=== PATIENT | female | born 1950 | race Caucasian/White ===

== ENCOUNTER 2020-12-07 13:41 | Emergency (ER) | payer OTHER ==
--- OUTSIDE RECORDS SUMMARY | 2020-12-07 13:50 | XMS REPORT | Continuity of Care Document ---
:1950 Author Organization [facility] [place] [facility] t Address [address] [place] [address] Care Team Providers Name Role Phone Tee Wolf MD Primary Care Physician Farhat ELLIS Attending Clinician Tanner Mata MD Attending Clinician Logan Mariscal MD Attending Clinician FORREST Attending Clinician Unavailable Payers Payer Name Policy Type Policy Effective Date Expiration Date Sour ce Number UHC MEDICAREUHC [id number] 2020 [place] TRS/[facility] 00:00:00 Method[facility] t [id number] 2020-Present Problems Condition Condition Condition Status Onset Resolution Last Treating Co mments Source Name Details Category Date Date Treatment Clinician Date Sjogrens Sjogrens Problem Active Unive rs syndrome syndrome [facility] [place] [facility] Bilateral Bilateral Problem Active Uni vers knee pain knee pain [facility] [place] [facility] Chondromal Chondromal Problem Active U nivers acia of ac[place] of ity of [place] oral oral Physici joint, joint, ans right right History of History of Problem Resolve Univers High blood High blood d it y of pressure pressure [place] [facility] History of History of Problem Resolve Univers Sjogren-[place] S[place]ren[place] d it y of rsson rsson [place] syndrome syndrome Physic i ans Allergies, Adverse Reactions, Alerts This patient has no known allergies or adverse reactions. Family History Family Member Diagnosis Comments Start Date Stop Date Source Mother Family history of [facility] of [place] malignant neoplasm Physic ians Social History Social Habit Start Date Stop Date Quantity Comments Source Sex Assigned At [facility] Tobacco use and 2018-04-05 2018-04-05 Never used [facility] kes - exposure 00:00:00 00:00:00 [facility] Alcohol intake 2018-04-05 2018-04-05 Current [facility] es - 00:00:00 00:00:00 non-drinker of Medical nter alcohol (finding) Smoking Status Start Date Stop Date Source Never smoker [facility] Medications Ordered Filled Start Stop Current Ordering Indication Dosage Frequency Signature Comments Components Source Medication Medication Date Date Medication? Clinician (SIG) Name Name Meloxicam Meloxicam Yes AFSANEH TAKE 1 U nivers 15 MG Oral 15 MG Oral 4-12 FORREST TABLET ity of Tablet Tablet 00:00: M.D. DAILY [place] 00 NEEDED. Physici ans atorvastati 2017-06 Yes 10mg QD Take [address] [facility] (LIPITOR) 06-05 by mouth [facility] - 10 MG 11:58: daily. Medical tablet 57 [place] predniSONE 2017-06 Yes 2.5mg Take 2.[address] (DELTASONE) 1-02 mg [facility] - 2.5 MG 11:58: mouth as Medical tablet 57 needed. [place] traZODone 2017-06 Yes 50mg QD Take [address] [facility] [address] [facility] (DESYREL) 02 by mouth [facility] - 50 MG 11:58: nightly. Medical tablet 57 [place] aspirin 81 2017-06 Yes 81mg QD Take [address] MG EC 06-05 by mouth [facility] - tablet 11:58: daily. Medical 57 [place] multivitami 2017-06 Yes 1{tbl} QD Take [address] [facility] per 06-05 tablet by [facility] - tablet 11:58: mouth Medical 57 daily. [place] cetirizine 2017-06 Yes 10mg QD Take [address] (ZYRTEC) 10 02 by mouth [facility] - MG tablet 11:58: daily. Medica l 57 [place] metoprolol 2017-06 Yes 25mg QD Take [address] (TOPROL-XL) 02 by mouth [facility] - 25 MG 24 hr 11:58: daily. Medi narcisa tablet 57 Center Hydroxychlo Hydroxychlo 2011-06 Yes ÓSCAR QD TAKE 1 Univers roquine roquine 0-19 R HOLLOW[place] TABLET ity of Sulfate 200 Sulfate 200 00:00: M.D. DAILY WITH [place] MG Oral MG Oral 00 FOOD. Physici Tablet Tablet ans Cevimeline Cevimeline 2011-06 Yes ÓSCAR TAKE 1 Univers HCl - 30 MG HCl - 30 MG 0-19 R [place]LLOWAY CAPSULE BY ity of Oral Oral 00:00: M.D. MOUTH [place] Capsule Capsule 00 EVERY 8 Physic i HOURS FOR ans SJOGRENS traZODone traZODone Yes 1 TAKE 1 Uni vers HCl - 50 MG HCl - 50 MG TABLET ity of Oral Tablet Oral Tablet PRN [place] [facility] Mature Mature Yes 1 QD TAKE 1 Univers Adult Adult TABLET ity of Century Century DAILY. [place] TABS TABS Physici ans Aspirin 81 Aspirin 81 Yes 1 QD TAKE 1 U nivers MG TABS MG TABS TABLET ity of DAILY. [place] [facility] Calcium + D Calcium + D Yes QD TAKE 1 Univers TABS TABS TABLET ity of ONCE [place] DAILY. Physici ans Zyrtec 10 Zyrtec 10 Yes Unive rs MG TABS MG TABS ity of [place] [facility] Aspirin 81 Aspirin 81 Yes Uni vers MG Oral MG Oral ity of Tablet Tablet [place] Chewable Chewable Physici ans Metoprolol Metoprolol Yes Uni vers Tartrate 25 Tartrate 25 i ty of MG Oral MG Oral [place] Tablet Tablet Physici ans Atorvastati Atorvastati Yes U nivers n Calcium n Calcium ity o f 10 MG Oral 10 MG Oral Venu as Tablet Tablet Physici ans Meloxicam Meloxicam Yes Unive rs 7.5 MG Oral 7.5 MG Oral i ty of Tablet Tablet [place] [facility] Sertraline Sertraline Yes Uni vers HCl TABS HCl TABS [facility] [place] [facility] Immunizations Ordered Immunization Filled Immunization Date Status Commen ts Source Name Name PFIZER COVID-19 MRNA 2020-07-14 Completed [place] [facility] 00:[place]:00 [facility] PFIZER COVID-19 MRNA 2020-06-16 Completed [place] VACC[place] 00:00:00 [facility] Vital Signs Vital Name Observation Time Observation Value Comments Source Height 2018-09-16 08:10:00 67 [in_us] [facility] [place] [facility] Weight 2018-09-16 08:10:00 157 [lb_av] [facility] Physicians Body Mass Index 2018-09-16 08:10:00 24.59 kg/m2 [facility] Calculated Physicians Procedures Procedure Date / Time Performed Performing Clinician Edwin e [U] XR KNEE 3 VWS 2018-09-13 00:00:00 [facility] BILATERAL Physicians Plan of Care Planned Activity Planned Date Details Comments Source Future Scheduled 2028-04-[address] [facility] [address] [facility] - Test 00:00:00 malignant neoplasm of Medica l Center colon (procedure) [code = 996575696] Future Scheduled 2021-01-02 INFL[place]ENZA VACCINE [place] [facility] Test 00:00:00 [code = INFLUENZA VACCINE] Future Scheduled 2020-02-[address] [facility] - Test 00:00:00 (#1) [code = Medical Center INFLUENZA VACCINE (#1)] Future Scheduled 2016-06-[address] [facility] - Test 00:00:00 WELLNESS (YEAR 2 or Medical Center FIRST YEAR if no IPPE) [code = MEDICARE ANNUAL WELLNESS (YEAR 2 or FIRST YEAR if no IPPE)] Future Scheduled 2012-04-28 SHINGLES VACCINES [place] [facility] Test 00:00:00 (#2) [code = SHINGLES VACCINES (#2)] Future Scheduled 2000 BREAST CANCER [facility] Test 00:00:00 SCREENING [code = BREAST CANCER SCREENING] Future Scheduled 2000 COLONOSCOPY SCREENING [place] [facility] Test 00:00:00 [code = COLONOSCOPY SCREENING] Future Scheduled 1968 Hepatitis C screening [place] [facility] Test 00:00:00 (procedure) [code = 187171247] Future Scheduled [address] [facility] - Test 00:00:00 malignant neoplasm of Medica l Center breast (procedure) [code = 619261801] Encounters Start End Encounter Admission Attending Care Care Encounter Source Date/Time Date/Time Type Type Clinicians Facility Department ID 2020-08-25 2020-08-25 Office CHARLEE Dougherty [id number] 09:58:39 10:13:39 Visit [facility] AMBULATOR [id number] Y [id number] 2020-08-13 2020-08-13 Office CHARLEE Dougherty [id number] 09:55:51 10:10:51 Visit [facility] AMBULATOR [id number] Y [id number] 2020-07-14 2020-07-14 Outpatient [facility] [id number] [address] [place] [address] 00:00:00 00:00:[address] 2020-07-01 2020-07-01 Office CHARLEE Mata [id number] 10:50:46 13:42:49 Visit Ashley Hart AMBULATOR [id number] Y [id number] 2020-06-16 2020-06-16 Outpatient [facility] [id number] [place] [address] 00:00:00 00:00:[address] 2020-05-13 2020-05-13 Office Shilpa Mariscal BCM [id number] 13:33:52 13:48:52 Visit [place] AMBULATOR [id number] Y [id number] 2018-09-13 2018-09-13 Appointmen [facility] [id number] Univers 11:00:00 11:00:00 tAndres SHELBY M.D. Ortho and i ty of [place] [facility] S Fernanda SHELBY M.D. Medical Physi ci [place] ans Results Test Description Test Time Test Comments Results Result Sour e Comments [U] XR KNEE 3 VWS 2018-09-13 Images Univers ity of BILATERAL 09:33:00 acquired, not [place] reported on Physicians this accession number.
--- NOTE | 2020-12-07 14:08 | RAD REPORT ---
EXAM DESCRIPTION: CT - Ct Stroke Brain Wo Cont - 12/07/2020 2:02 pm CLINICAL HISTORY: Weakness COMPARISON: None. TECHNIQUE: Axial 5 mm thick images of the head were obtained without IV contrast. All CT scans are performed using dose optimization technique as appropriate and may include automated exposure control or mA/KV adjustment according to patient size. FINDINGS: No intracranial hemorrhage, mass, edema or shift of mid-line structures. No acute infarcti on changes seen. No abnormal extra-axial fluid collections. Mastoid air cells and visualized portions of the paranasal sinuses are clear. No acute bony findings. IMPRESSION: No acute intracranial abnormality. Discussed with Dr. Crain by Dr. Maloney at 1403 on 12/07/20
[2020-12-07 15:08] LABS: Absolute Lymphocytes (CBC) 1.8 K/uL (0.7-4.9); Basophils % 1.1 % (0-1.3); Hematocrit 39.2 % (36.0-45.0); Lymphocytes % 27.7 % (15.3-44.8); MPV 8.4 fL (7.6-11.3); RBC Red Blood Cell Count 4.57 M/uL (3.86-4.86)
[2020-12-07 15:20] LABS: Potassium 4.2 mmol/L (3.5-5.1)
--- NOTE | 2020-12-07 15:29 | RAD REPORT ---
EXAM DESCRIPTION: RAD - Chest Single View - 12/07/2020 2:30 pm CLINICAL HISTORY: Weakness COMPARISON: None TECHNIQUE: AP portable chest image was obtained 12/07/2020 2:30 pm . FINDINGS: Lungs are clear. Heart and vasculature are normal. No measurable pleural effusion and no p neumothorax. No acute bony abnormality seen. No acute aortic findings suspected. IMPRESSION: No acute cardiopulmonary process.
[2020-12-07] MEDS ORDERED: FOLIC ACID 5 MG/ML VIAL ONE (15:34)
--- NOTE | 2020-12-07 16:34 | RAD REPORT ---
EXAM DESCRIPTION: MRI - MRA Head Wo Cont - 12/07/2020 4:24 pm CLINICAL HISTORY: Weakness, stroke-like symptoms COMPARISON: None. TECHNIQUE: Axial and coronal 3D [id number] image acquisition was performed. 3D rotational images were generated with source and reconstruction images reviewed. Horizontal and vertical axis rotation al views generated using MIP protocol. FINDINGS: Major venous sinuses are patent. Right transverse sinus is dominant sinus is a normal vari ant. No aneurysm or vascular malformation seen. No named branch occlusion or significant atherosclerotic c hange identifiable. Distal internal carotid arteries and basilar artery show no significant findings. IMPRESSION: MRA head examination shows no significant or suspicious finding.
--- NOTE | 2020-12-07 16:37 | RAD REPORT ---
EXAM DESCRIPTION: MRI - Brain W/Wo Cont - 12/07/2020 4:25 pm CLINICAL HISTORY: WEAKNESS, dizziness, stroke-like symptoms COMPARISON: MRA Head Wo Cont dated 12/07/2020T head same date TECHNIQUE: Sagittal and axial T1-weighted images were obtained. Axial PD/heavily T2-weighted and T2- FLAIR images were obtained along with axial DWI/ADC mapping sequences. Coronal heavily T2 weighted s equence obtained. Axial and coronal post-contrast T1-weighted images were also obtained. A ml Multi arnol contrast following utilized. FINDINGS: No intracranial hemorrhage, mass or acute infarction. There is no edema or shift of midli ne structures. No extra-axial fluid collections. Mclaughlin-matter/white matter junction is preserved. Sig nal voids are seen as a normal finding in the major intracranial vessels. No significant atrophy malhotra ges are present. Ventricles are normal. Rare punctate areas of T2 signal abnormality in the cerebral white matter. Post-contrast images show normal enhancement. No dural thickening. Mastoid air cells and paranasal sinuses are clear. IMPRESSION: No acute infarction and no acute intracranial finding. No significant intracranial findings identifiable.
--- NOTE | 2020-12-07 16:40 | RAD REPORT ---
EXAM DESCRIPTION: MRI - MRA Neck W/Wo Cont - 12/07/2020 4:25 pm CLINICAL HISTORY: Weakness, dizziness, stroke-like symptoms TECHNIQUE: MR angiography of the cervical vasculature performed. Coronal imaging plane acquisition u tilized. A MultiHance contrast volume was utilized. Coronal reformatted images were generated and re viewed. Vertical axis 3D rotational projections obtained using maximum intensity projection protocol. FINDINGS: No innominate artery abnormality seen. Right common carotid and internal carotid arteries show no sig nificant findings. Arteries are codominant with no suspicious finding. Proximal left common carotid a rtery is tortuous. Origin is somewhat obscured by a left-sided the venous contamination. Acute abnorm ality is not suspected. Elsewhere the left common carotid and internal carotid arteries show no suspi cious findings. IMPRESSION: MRA neck examination shows no significant or suspicious finding.
[2020-12-07] MEDS ORDERED: NA CHLORIDE 0.9% 1,000 ML ONE (17:12)
[2020-12-07] MEDS ORDERED: ASPIRIN 325 MG TAB ONE (17:12)
--- NOTE | 2020-12-07 17:52 | ER ---
Nurse's Notes [facility] Name: oZe Rios Age: 70 yrs Sex: Female : 1950 Arrival Date: 12/07/2020 Time: 13:43 Bed 19 Private MD: Diagnosis: Transient cerebral ischemic attack, unspecified;Dehydration Presentation: 12/07 13:46 Chief complaint: Spouse and/or significant other states: he noticed today around 1000 sv that the pt's smile was drooping on the left side, and slurred speech. Pt stated that she also has R hand weakness. 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 An acute neurological deficit is present. The charge nurse has been notified. Pre-hospital glucose is not applicable to this patient. Risk Assessment: Do you want to hurt yourself or someone else? Patient reports no desire to harm self or others. Onset of symptoms was December 07, 2020 at 10:00. 13:46 Method Of Arrival: Wheelchair sv 13:46 Acuity: ERICA 2 sv 14:00 Coronavirus screen: Client denies travel out of the [place] in the last 14 days. At this jl7 time, the client does not indicate any symptoms associated with coronavirus-19. Ebola Screen: No symptoms or risks identified at this time. Initial Sepsis Screen: Does the patient meet any 2 criteria? No. Patient's initial sepsis screen is negative. Does the patient have a suspected source of infection? No. Patient's initial sepsis screen is negative. Triage Assessment: 13:46 The onset of the patients symptoms was December 07, 2020 at 10:00. General: Appears in no sv apparent distress. comfortable, Behavior is calm, cooperative, appropriate for age. Neuro: Level of Consciousness is awake, alert, obeys commands, Oriented to person, place, time, situation, Gait is steady, Speech is slurred, Reports numbness in right hand Denies blurred vision dizziness, diplopia. Respiratory: Respiratory effort is even, unlabored. Stroke Activation: Symtpom onset >3 hours and < 6 hours Physician: Stroke Attending; Name: ; Notified At: ; Arrived At: Physician: Chief Stroke Resident; Name: ; Notified At: ; Arrived At: Physician: Stroke Resident; Name: ; Notified At: ; Arrived At: Physician: ED Attending; Name: Dr Crain; Notified At: 13:53; Arrived At: 14:03 Physician: ED Resident; Name: ; Notified At: ; Arrived At: 13:46 Pb MAJANO at bedside at 1403 sv Historical: - Allergies: 14:05 No Known Allergies; sv - PMHx: 14:05 Hypertensive disorder; sv - Immunization history:: Adult Immunizations unknown. - Social history:: Smoking status: Patient denies any tobacco usage or history of. Screenin:10 Abuse screen: Denies threats or abuse. Denies injuries from another. Nutritional jl7 screening: No deficits noted. Tuberculosis screening: No symptoms or risk factors identified. Fall Risk IV access (20 points). Total Maxwell Fall Scale indicates No Risk (0-24 pts). Assessment: 13:52 Reassessment: pt to CT via stretcher with ANUJA Dyer. jl7 14:10 General: Appears in no apparent distress. uncomfortable, Behavior is cooperative, jl7 appropriate for age, anxious. Pain: Denies pain. Neuro: Level of Consciousness is awake, alert, obeys commands, Oriented to person, place, time, situation, Moves all extremities. Full function. Cardiovascular: Patient's skin is warm and dry. Respiratory: Airway is patent Respiratory effort is even, unlabored, Respiratory pattern is regular, symmetrical. GI: No signs and/or symptoms were reported involving the gastrointestinal system. : No signs and/or symptoms were reported regarding the genitourinary system. EENT: No signs and/or symptoms were reported regarding the EENT system. Derm: Skin is pink, warm \T\ dry. 14:10 VAN Scoring: Arm Drift: Patients demonstrates NO arm weakness. Patient is VAN Negative. jl7 T-PA (Activase) Screening: Contraindications: Rapidly improving condition or minor deficit: Yes. 14:20 The patient has not been NPO before screening. The patient is currently on the jl7 following diet: Home The patient is alert, and able to follow commands. The patient does not exhibit slurred or garbled speech. The patient is not exhibiting difficulty speaking. The patient does not exhibit difficulty understanding words. The patient is able to swallow own secretions with no drooling or need for suction. Patient tolerated one teaspoon of water. No drooling, immediate coughing, gurgling, or clearing of the throat was noted. The patient tolerated 90mL of water. No drooling, immediate coughing, gurgling, or clearing of the throat was noted. The patient passed the bedside swallow screening. Oral medications may be given as ordered. Contact Physician for further diet orders. Provider notified of bedside swallow screening results: Pb Braden LEVEL DESIGNER. 15:00 Reassessment: Patient appears in no apparent distress at this time. No changes from jl7 previously documented assessment. Patient and/or family updated on plan of care and expected duration. Pain level reassessed. Patient is alert, oriented x 3, equal unlabored respirations, skin warm/dry/pink. Patient denies pain at this time. 16:00 Reassessment: Patient appears in no apparent distress at this time. No changes from jl7 previously documented assessment. Patient and/or family updated on plan of care and expected duration. Pain level reassessed. Patient is alert, oriented x 3, equal unlabored respirations, skin warm/dry/pink. 16:45 Reassessment: MELECIO Amrbiz at bedside discussing results and POC. jl7 17:30 Reassessment: Patient appears in no apparent distress at this time. No changes from jl7 previously documented assessment. Patient and/or family updated on plan of care and expected duration. Pain level reassessed. Patient is alert, oriented x 3, equal unlabored respirations, skin warm/dry/pink. Vital Signs: 14:10 BP 120 / 50; Pulse 98; Resp 16; Pulse Ox 98% on R/A; kj1 14:42 BP 124 / 76; Pulse 50; Resp 16; Temp 98.1; Pulse Ox 99% ; Pain 0/10; jl7 15:10 BP 130 / 67; Pulse 47; Resp 15; Pulse Ox 100% ; jl7 16:55 BP 149 / 80; Pulse 50; Resp 15; Pulse Ox 100% ; Pain 0/10; jl7 18:10 BP 158 / 72; Pulse 52; Resp 15; Pulse Ox 100% ; jl7 NIH Stroke Scale Scores: 14:10 NIHSS Score: 0 jl7 14:15 NIHSS Score: 0 pm1 ED Course: 13:43 Patient arrived in ED. ds1 13:49 Halle Corral RN is Primary Nurse. jl7 13:54 Pb Braden NP is PHCP. pm1 13:54 Jovan Crain MD is Attending Physician. pm1 14:02 CT Stroke Brain w/o Contrast In Process Unspecified. EDMS 14:05 Triage completed. sv 14:05 Initial lab(s) drawn, by me, sent to lab. EKG done, by ED staff, reviewed by Pb Braden NP. Inserted saline lock: 20 gauge in left antecubital area, using aseptic technique. Blood collected. 14:06 Arm band placed on. sv 14:10 Patient has correct armband on for positive identification. Placed in gown. Bed in low jl7 position. Call light in reach. Side rails up X 1. roll inspector on. Pulse ox on. NIBP on. 14:30 Stroke CXR 1 View In Process Unspecified. EDMS 16:24 MRA Head Wo Cont In Process Unspecified. EDMS 16:25 Brain W/Wo Cont In Process Unspecified. EDMS 16:25 MRA Neck W/Wo Cont In Process Unspecified. EDMS 16:58 No provider procedures requiring assistance completed. jl7 17:51 Kavin Monroy MD is Referral Physician. pm1 18:08 IV discontinued, intact, bleeding controlled, No redness/swelling at site. Pressure jl7 dressing applied. Administered Medications: 14:40 Drug: foLIC Acid 1 mg Route: IVPB; Site: left antecubital; jl7 14:41 Follow up: Response: No adverse reaction; IV Status: Completed infusion jl7 16:54 Drug: Aspirin 325 mg Route: PO; jl7 18:11 Follow up: Response: No adverse reaction jl7 16:54 Drug: NS 0.9% 1000 ml Route: IV; Rate: 1000 ml; Site: left antecubital; jl7 17:50 Follow up: Response: No adverse reaction; IV Status: Completed infusion; IV Intake: jl7 1000ml Point of Care Testing: Blood Glucose: 14:08 Blood Glucose: 90 mg/dL; jl7 Ranges: Intake: 17:50 IV: 1000ml; Total: 1000ml. jl7 Outcome: 17:51 Discharge ordered by . pm1 18:08 Discharged to home ambulatory, with family. jl7 18:08 Condition: stable 18:08 Discharge instructions given to patient, Instructed on discharge instructions, follow up and referral plans. medication usage, Demonstrated understanding of instructions, follow-up care, medications, Prescriptions given X 2. 18:11 Patient left the ED. jl7 NIH Stroke Scale - NIH Stroke Score Date: 12/07/2020 Time: 14:10 Total Score = 0 1a. Level of Consciousness (LOC) - 0(Alert) 1b. Level of Consciousness (LOC) (Month \T\ Age) - 0(Both) 1c. LOC Commands (Open \T\ Closes Eyes/Ingot Car Operator) - 0(Both) 2. Best Gaze (Lateral Gaze Paresis) - 0(Normal) 3. Visual Field Loss - 0(No visual loss) 4. Facial Palsy - 0(Normal) 5a. Left Arm: Motor (10-second hold) - 0(No drift) 5b. Right Arm: Motor (10-second hold) - 0(No drift) 6a. Left Leg: Motor (5-second hold - always test supine) - 0(No drift) 6b. Right Leg: Motor (5-second hold - always test supine) - 0(No drift) 7. Limb Ataxia (finger/nose \T\ heel/rosario - test with eyes open) - 0(Absent) 8. Sensory Loss (pinprick arms/legs/face) - 0(Normal) 9. Best Language: Aphasia (description/naming/reading) - 0(No aphasia) 10. Dysarthria (speech clarity - read or repeat words) - 0(Normal) 11. Extinction and Inattention (visual/tactile/auditory/spatial/personal) - 0(No abnormality) Initials: jl7 NIH Stroke Scale - NIH Stroke Score Date: 12/07/2020 Time: 14:15 Total Score = 0 1a. Level of Consciousness (LOC) - 0(Alert) 1b. Level of Consciousness (LOC) (Month \T\ Age) - 0(Both) 1c. LOC Commands (Open \T\ Closes Eyes/Ingot Car Operator) - 0(Both) 2. Best Gaze (Lateral Gaze Paresis) - 0(Normal) 3. Visual Field Loss - 0(No visual loss) 4. Facial Palsy - 0(Normal) 5a. Left Arm: Motor (10-second hold) - 0(No drift) 5b. Right Arm: Motor (10-second hold) - 0(No drift) 6a. Left Leg: Motor (5-second hold - always test supine) - 0(No drift) 6b. Right Leg: Motor (5-second hold - always test supine) - 0(No drift) 7. Limb Ataxia (finger/nose \T\ heel/rosario - test with eyes open) - 0(Absent) 8. Sensory Loss (pinprick arms/legs/face) - 0(Normal) 9. Best Language: Aphasia (description/naming/reading) - 0(No aphasia) 10. Dysarthria (speech clarity - read or repeat words) - 0(Normal) 11. Extinction and Inattention (visual/tactile/auditory/spatial/personal) - 0(No abnormality) Initials: pm1 Signatures: Dispatcher [employer] Manisha Bullock RN RN Marcelle Friend ds1 Pb Braden, LEVEL DESIGNER LEVEL DESIGNER pm1 Halle Corral RN RN jl7 Linda Coy kj1 Corrections: (The following items were deleted from the chart) 14:15 14:00 BP 120 / 50; Pulse 98bpm; Resp 16bpm; Pulse Ox 98% RA; kj1 kj1
--- NOTE | 2020-12-07 17:52 | EDPHYS ---
Physician Documentation [facility] Name: Zoe Rios Age: 70 yrs Sex: Female : 1950 Arrival Date: 12/07/2020 Time: 13:43 Bed 19 Private MD: ED Physician Jovan Crain HPI: 12/07 14:15 This 70 yrs old Female presents to ER via Wheelchair with complaints of S/S pm1 of Possible Stroke. 14:15 The patient's problem is reported as a facial droop, on right, paresthesias, numbness pm1 to right middle finger and coordination issues with right hand. Onset: The symptoms/episode began/occurred yesterday, at 12:00. Duration: The episode is continuous. Context: symptoms became apparent yesterday at 1200 while moving items, occurred at home. The symptoms are alleviated by nothing. The symptoms are aggravated by nothing. Associated signs and symptoms: Pertinent negatives: chest pain, headache, palpitations, shortness of breath. Severity of symptoms: in the emergency department the symptoms have improved facial droop worse at 1000 today. Patient's baseline: Neuro: alert and fully oriented, Motor: no deficits, Ambulation: walks without assistance, Speech: normal. The patient has not experienced similar symptoms in the past. The patient has not recently seen a physician. Historical: - Allergies: 14:05 No Known Allergies; sv - PMHx: 14:05 Hypertensive disorder; sv - Immunization history:: Adult Immunizations unknown. - Social history:: Smoking status: Patient denies any tobacco usage or history of. ROS: 14:15 Constitutional: Negative for fever, chills, and weight loss, Eyes: Negative for injury, pm1 pain, redness, and discharge, ENT: Negative for injury, pain, and discharge, Neck: Negative for injury, pain, and swelling, Cardiovascular: Negative for chest pain, palpitations, and edema, Respiratory: Negative for shortness of breath, cough, wheezing, and pleuritic chest pain, Abdomen/GI: Negative for abdominal pain, nausea, vomiting, diarrhea, and constipation, Back: Negative for injury and pain, MS/Extremity: Negative for injury and deformity, Skin: Negative for injury, rash, and discoloration. 14:15 Neuro: Positive for numbness, of the right hand, Right sided facial droop, Negative for headache. 14:15 All other systems are negative. Exam: 14:15 Constitutional: This is a well developed, well nourished patient who is awake, alert, pm1 and in no acute distress. Head/Face: Normocephalic, atraumatic. Eyes: Pupils equal round and reactive to light, extra-ocular motions intact. Lids and lashes normal. Conjunctiva and sclera are non-icteric and not injected. Cornea within normal limits. Periorbital areas with no swelling, redness, or edema. ENT: Nares patent. No nasal discharge, no septal abnormalities noted. Tympanic membranes are normal and external auditory canals are clear. Oropharynx with no redness, swelling, or masses, exudates, or evidence of obstruction, uvula midline. Mucous membranes moist. Neck: Trachea midline, no thyromegaly or masses palpated, and no cervical lymphadenopathy. Supple, full range of motion without nuchal rigidity, or vertebral point tenderness. No Meningismus. 14:15 Abdomen/GI: Soft, non-tender, with normal bowel sounds. No distension or tympany. No guarding or rebound. No evidence of tenderness throughout. Back: No spinal tenderness. No costovertebral tenderness. Full range of motion. Skin: Warm, dry with normal turgor. Normal color with no rashes, no lesions, and no evidence of cellulitis. MS/ Extremity: Pulses equal, no cyanosis. Neurovascular intact. Full, normal range of motion. 14:15 Cardiovascular: Exam negative for acute changes, Rate: normal, Rhythm: regular, Pulses: no pulse deficits are appreciated, Heart sounds: normal, Edema: is not appreciated. 14:15 Respiratory: Exam negative for acute changes, respiratory distress, shortness of breath, Breath sounds: are clear throughout. 14:15 Neuro: Exam negative for acute changes, Orientation: is normal, Mentation: is normal, Cranial nerves: CN II- XII are normal as tested, Cerebellar function: normal finger to nose testing, Motor: is normal, moves all fours, strength is 5/5 in all extremities, Sensation: is normal, no obvious gross deficits. 14:41 Radiologist reports: Negative pm1 Vital Signs: 14:10 BP 120 / 50; Pulse 98; Resp 16; Pulse Ox 98% on R/A; kj1 14:42 BP 124 / 76; Pulse 50; Resp 16; Temp 98.1; Pulse Ox 99% ; Pain 0/10; jl7 15:10 BP 130 / 67; Pulse 47; Resp 15; Pulse Ox 100% ; jl7 16:55 BP 149 / 80; Pulse 50; Resp 15; Pulse Ox 100% ; Pain 0/10; jl7 18:10 BP 158 / 72; Pulse 52; Resp 15; Pulse Ox 100% ; jl7 NIH Stroke Scale Scores: 14:10 NIHSS Score: 0 jl7 14:15 NIHSS Score: 0 pm1 MDM: 13:54 Patient medically screened. pm1 14:15 ED course: Patient is not a TPA candidate. Onset 1200 yesterday. pm1 17:50 Data reviewed: vital signs. Data interpreted: Pulse oximetry: on room air is 100 %. pm1 Interpretation: normal. Counseling: I had a detailed discussion with the patient and/or guardian regarding: the historical points, exam findings, and any diagnostic results supporting the discharge/admit diagnosis, lab results, radiology results, the need for outpatient follow up, a neurologist, Dr. Monroy, to return to the emergency department if symptoms worsen or persist or if there are any questions or concerns that arise at home. 18:04 ED course: Patient does not want any further IV fluid hydration. She would like to go pm1 home and drink fluids. 12/07 13:58 Order name: Basic Metabolic Panel; Complete Time: 15:38 pm1 12/07 13:58 Order name: CBC with Diff; Complete Time: 15:38 pm1 12/07 13:58 Order name: Protime (+inr); Complete Time: 15:38 pm1 12/07 13:58 Order name: Ptt, Activated; Complete Time: 15:38 pm1 12/07 13:58 Order name: CT Stroke Brain w/o Contrast; Complete Time: 14:41 pm1 12/07 15:59 Order name: Glucose, Ancillary Testing; Complete Time: 16:08 EDMS 12/07 13:58 Order name: Stroke CXR 1 View; Complete Time: 15:38 pm1 12/07 15:14 Order name: MRA Head Wo Cont; Complete Time: 16:42 EDMS 12/07 15:16 Order name: Brain W/Wo Cont; Complete Time: 16:42 EDMS 12/07 15:16 Order name: MRA Neck W/Wo Cont; Complete Time: 16:42 EDMS 12/07 13:58 Order name: EKG; Complete Time: 13:59 pm1 12/07 13:58 Order name: Accucheck; Complete Time: 14:34 pm1 12/07 13:58 Order name: Cardiac monitoring; Complete Time: 14:34 pm1 12/07 13:58 Order name: EKG - Nurse/Tech; Complete Time: 14:34 pm1 12/07 13:58 Order name: IV Saline Lock; Complete Time: 14:34 pm1 12/07 13:58 Order name: Labs collected and sent; Complete Time: 14:34 pm1 12/07 13:58 Order name: NPO; Complete Time: 14:34 pm1 12/07 13:58 Order name: O2 Per Protocol; Complete Time: 14:39 pm1 12/07 13:58 Order name: O2 Sat Monitoring; Complete Time: 14:39 pm1 12/07 13:58 Order name: Stroke Swallow Screen; Complete Time: 14:39 pm1 Administered Medications: 14:40 Drug: foLIC Acid 1 mg Route: IVPB; Site: left antecubital; jl7 14:41 Follow up: Response: No adverse reaction; IV Status: Completed infusion jl7 16:54 Drug: Aspirin 325 mg Route: PO; jl7 18:11 Follow up: Response: No adverse reaction jl7 16:54 Drug: NS 0.9% 1000 ml Route: IV; Rate: 1000 ml; Site: left antecubital; jl7 17:50 Follow up: Response: No adverse reaction; IV Status: Completed infusion; IV Intake: jl7 1000ml Point of Care Testing: Blood Glucose: 14:08 Blood Glucose: 90 mg/dL; jl7 Ranges: Critical Glucose Levels:Adult <50 mg/dl or >400 mg/dl <40 mg/dl or >180 mg/dl Disposition: 18:55 Co-signature as Attending Physician, Jovan Crain MD I agree with the assessment and marjorie plan of care. Disposition Summary: 12/07/20 17:51 Discharge Ordered Location: Home pm1 Problem: new pm1 Symptoms: are resolved pm1 Condition: Stable pm1 Diagnosis - Transient cerebral ischemic attack, unspecified pm1 - Dehydration pm1 Followup: pm1 - With: Emergency Department - When: As needed - Reason: Worsening of condition Followup: pm1 - With: Kavin Monroy MD - When: 2 - 3 days - Reason: Recheck today's complaints, Continuance of care, Re-evaluation by your physician Discharge Instructions: - Discharge Summary Sheet pm1 - Dehydration, Elderly pm1 - Transient Ischemic Attack pm1 - Rehydration, Elderly pm1 Forms: - Medication Reconciliation Form pm1 - Thank You Letter pm1 - Antibiotic Education pm1 - Prescription Opioid Use pm1 Prescriptions: - Lipitor 40 mg Oral tablet - take 1 tablet by ORAL route once daily for 30 days; 30 tablet; Refills: 0, pm1 Product Selection Permitted - Folic Acid 1 mg Oral Tablet - take 1 tablet by ORAL route once daily; 30 tablet; Refills: 0, Product pm1 Selection Permitted NIH Stroke Scale - NIH Stroke Score Date: 12/07/2020 Time: 14:10 Total Score = 0 1a. Level of Consciousness (LOC) - 0(Alert) 1b. Level of Consciousness (LOC) (Month \T\ Age) - 0(Both) 1c. LOC Commands (Open \T\ Closes Eyes/Retail Greeting Card Merchandiser) - 0(Both) 2. Best Gaze (Lateral Gaze Paresis) - 0(Normal) 3. Visual Field Loss - 0(No visual loss) 4. Facial Palsy - 0(Normal) 5a. Left Arm: Motor (10-second hold) - 0(No drift) 5b. Right Arm: Motor (10-second hold) - 0(No drift) 6a. Left Leg: Motor (5-second hold - always test supine) - 0(No drift) 6b. Right Leg: Motor (5-second hold - always test supine) - 0(No drift) 7. Limb Ataxia (finger/nose \T\ heel/rosario - test with eyes open) - 0(Absent) 8. Sensory Loss (pinprick arms/legs/face) - 0(Normal) 9. Best Language: Aphasia (description/naming/reading) - 0(No aphasia) 10. Dysarthria (speech clarity - read or repeat words) - 0(Normal) 11. Extinction and Inattention (visual/tactile/auditory/spatial/personal) - 0(No abnormality) Initials: jl7 NIH Stroke Scale - NIH Stroke Score Date: 12/07/2020 Time: 14:15 Total Score = 0 1a. Level of Consciousness (LOC) - 0(Alert) 1b. Level of Consciousness (LOC) (Month \T\ Age) - 0(Both) 1c. LOC Commands (Open \T\ Closes Eyes/Retail Greeting Card Merchandiser) - 0(Both) 2. Best Gaze (Lateral Gaze Paresis) - 0(Normal) 3. Visual Field Loss - 0(No visual loss) 4. Facial Palsy - 0(Normal) 5a. Left Arm: Motor (10-second hold) - 0(No drift) 5b. Right Arm: Motor (10-second hold) - 0(No drift) 6a. Left Leg: Motor (5-second hold - always test supine) - 0(No drift) 6b. Right Leg: Motor (5-second hold - always test supine) - 0(No drift) 7. Limb Ataxia (finger/nose \T\ heel/rosario - test with eyes open) - 0(Absent) 8. Sensory Loss (pinprick arms/legs/face) - 0(Normal) 9. Best Language: Aphasia (description/naming/reading) - 0(No aphasia) 10. Dysarthria (speech clarity - read or repeat words) - 0(Normal) 11. Extinction and Inattention (visual/tactile/auditory/spatial/personal) - 0(No abnormality) Initials: pm1 Signatures: Dispatcher [employer] EDManisha Jackson, RN Jovan Ortiz MD MD cha Marinas, Patrick, PHOTOFINISHING LABORATORY WORKER PHOTOFINISHING LABORATORY WORKER pm1 Halle Corral RN RN jl7 Corrections: (The following items were deleted from the chart) 15:14 14:15 MR STROKE PROTOCOL+MRI.RAD.ARELIS ordered. EDMS EDMS
[2020-12-07 18:20] VITALS: TEMP 98.1
[2020-12-07 18:21] VITALS: O2SAT 100
[2020-12-07 18:25] VITALS: BP 158/72
--- NOTE | 2020-12-08 13:01 | EKG ---
Test Date: 2020-12-07 Test Time: 14:08:56 Workers' Compensation Mediator: JERRY MEASUREMENT RESULTS: Intervals: Rate: 52 MS: 158 QRSD: 110 QT: 478 QTc: 444 [place]: P: 57 MS: 158 QRS: -2 T: 19 INTERPRETIVE STATEMENTS: Sinus bradycardia Possible Left atrial enlargement Incomplete right bundle branch block Borderline ECG No previous ECG available for comparison Electronically Signed On 12-08-20 12:59:32 CDT by David Treadwell
== END 2020-12-07 18:11 | disposition home or self-care (01) ==
LOC: ER 13:41
DX: G45.9 Transient cerebral ischemic attack, unspecified (principal); E86.0 Dehydration; I10 Essential (primary) hypertension
CPT/HCPCS: 96361; 93005; 85025; 80048; 36415; 85610; 82947; 85730; 70450; 71045; 70553; 70544; 70549; 96374; 99285; A9577; J7030